=== PATIENT | female | born 1970 | race Caucasian/White ===

== ENCOUNTER 2021-06-15 14:13 | Outpatient (CLI) | payer OTHER | END 2021-06-15 23:59 | disposition home or self-care (01) | LOC: CFH 14:13 | PROVIDERS: ATTEND Obstetrics & Gynecology Gynecology | DX: R92.0 Mammographic microcalcification found on diagnostic imaging of breast (principal); R92.1 Mammographic calcification found on diagnostic imaging of breast | CPT/HCPCS: 77061; 77065; G0279 ==